=== PATIENT | female | born 1980 | race Caucasian/White ===

== ENCOUNTER → 2020-09-12 13:02 | Outpatient (REF) | payer BC, SELFPAY ==
--- NOTE | 2020-09-12 13:00 | CA_ITS ---
Transthoracic Echocardiogram Patient (Last, First, Middle): Sarita Sauceda, Gender: Female Date of : 1980 Age: 40 Procedure Date: 09/12/2020 Procedure Type: Transthoracic Echocardiogram Location: OP Height: 154.94 cm Weight: 56.7 kg BSA: 1.55 m2 Heart Rate: bpm BP: 118 / 60 mmHg Cath Lab Nurse: Referring MD: Carlos Alberto Murray MD Cigar Head Stringer: Aurelio Dunaway MD Symptoms: HEART PALPITATIONS R00.2 I49.8 ATRIAL ARRHYTHMIA Study Quality: Good ECG Rhythm: Sinus Conclusions: - 1. Normal LV systolic and diastolic function 2. Mild aortic regurgitation 3. Normal RV systolic pressure 4. No pericardial effusion Findings Left Ventricle Normal left ventricular size, thickness, and systolic function. The visually estimated ejection fraction is between 60-65%. Diastolic function is normal for age. Right Ventricle Normal right ventricular cavity size and systolic function. Atria Both atria are normal in size. There is no evidence of interatrial shunt. Aortic Valve The aortic valve structure and function is likely normal. There is no aortic valve stenosis. There is mild aortic valve regurgitation. Mitral Valve Normal mitral valve structure and function. There is no mitral valve regurgitation. There is no mitral valve stenosis. Pulmonic Valve The pulmonic valve is likely normal. There is trace pulmonic valve regurgitation. Tricuspid Valve Normal tricuspid valve structure. There is trace tricuspid valve regurgitation. The right ventricular systolic pressure is normal. The right ventricular systolic pressure is 18 mmHg. Normal right atrial pressure. There is no evidence of pulmonary hypertension. Great Vessels All visible segments of the aorta are normal in size. The pulmonary artery was not well visualized. Venous The inferior vena cava is normal in size and collapses greater than 50% with inspiration. Pericardium/Pleural There is no evidence of pericardial effusion. Prior Study Comparison No significant change compared to prior study dated: 12/28/2017. Measurements 2D Linear Measurements IVSd: 0.80 0.6-0.9/0.6-1.0 cm LVIDd: 4.74 3.9-5.3/4.2-5.9 cm LVIDd Index: 3.06 2.4-3.2/2.2-3.1 cm/m2 LVIDs: 2.56 2.0-3.6 cm LVPWd: 0.80 0.7-1.1 cm Ao Root: 2.70 2.1-3.5 cm LA Diam: 2.80 2.7-3.8/3.0-4.0 cm LAIDs Index: 1.81 1.5-2.3 cm/m2 LV Mass: 153.90 67-162/88-224 g LV Mass Index: 99.29 43-95/49-115 g/m2 LVOT Diam: 2.00 3.0+(-)1.3 cm Mitral Valve MV Pk E: 0.78 MV PK A: 0.55 MV Decel Time: 195.00 E/A: 1.40 E'Lateral: 11.80 E'Medial: 12.20 E/E' Med: 6.40 E/E' Lat: 6.60 PHT: 57.00 MVA PHT: 3.86 Decel [place]: 3.97 Aortic Valve AoV Pk Adalid: 1.25 AoV Mn Adalid: 0.84 AoV VTI: 0.27 AoV Pk Grad: 6.00 Aov Mn Grad: 3.00 ANSON Cont.VTI: 3.17 LVOT LVOT Pk Adalid: 1.20 LVOT Mn Adalid: 0.78 LVOT VTI: 0.27 LVOT Pk Grad: 6.00 LVOT Mn Grad: 3.00 LVOT Diam: 2.00 LVOT Area: 3.14 Diastolic Function MV Pk E: 0.78 MV Pk A: 0.55 E/A: 1.40 E'Medial: 12.20 E/E' Med: 6.40 E' Laterial: 11.80 E/E' Lat: 6.60 Tricuspid Valve TR Pk Adalid: 1.93 TR Pk Grad: 15.00 RA Press: 3.00 RVSP: 18.00 Great Vessels Aorta Ao Root-2D: 2.70 2.0-3.7 cm Ao Asc: 2.90 2.1-3.4 cm Pulmonary Valve PV Pk Adalid: 0.81 Peak PV Grad: 3.00 Updated in Other Vendor System with Status of Final Aurelio Dunaway MD electronically signed on 09/13/2020 9:11:34 AM with status of Final
--- NOTE | 2020-09-12 14:00 | HM_ITS ---
TEST PERFORMED: Cardiac event monitoring for 40 days. INDICATION: Palpitations. REQUESTING PHYSICIAN: Dr. Murray. FINDINGS: In the above monitoring period of almost 40 days between 09/12/2020 to 10/22/2020, the underlying rhythm was sinus. Heart rates ranged between 58 to 68 beats per minute. There was no evidence of any significant ectopy or bradyarrhythmia or tachyarrhythmia during this time. No patient activated symptoms as well in the same. CONCLUSION: Essentially unremarkable 40-day event monitoring showing underlying sinus rhythm only and without any arrhythmias. Carlos Alberto Murray MD HS/MODL / [id number]
== END ==
LOC: HO.CARD 13:02
PROVIDERS: PCP Internal Medicine; Visit Provider Internal Medicine
DX: I49.8 Other specified cardiac arrhythmias (principal); R00.2 Palpitations
CPT/HCPCS: 93270; 93306

== ENCOUNTER → 2020-10-22 12:33 | Outpatient (BNVA) | payer BC, SELFPAY | PROVIDERS: PCP Internal Medicine; Visit Provider Internal Medicine | DX: Z13.89 Encounter for screening for other disorder (principal) ==